=== PATIENT | female | born 1985 | race Caucasian/White ===

== ENCOUNTER 2017-04-28 16:49 | Emergency (ER) | payer MEDICAID ==
[~2017-04-28] VITALS: Ht 170.2 cm; Wt 63.5 kg
--- NOTE | 2017-04-28 17:20 | Emergency Room Report ---
History of Present Illness Time Seen by [id number] Presenting Problem in Triage Pt arrived:Walked Presenting Problem:PT BROUGHT IN BY PD FOR MEDICAL CLEARANCE. PT ADMITS SHE USED HEROIN APPROX 24 HRS AGO. 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 N Clinical Suspician of Infection? N Mental Status: 1 - Regular (Normal Baseline) Sepsis Risk:Low Sepsis Risk Have you (or family members/close friends) recently traveled outside the [place]? N If Yes, where/when: Have you had exposure to infectious disease within the past month? TB? Other? Specify: Comment The patient is brought in by police for medical clearance because she gives a history of having used heroin 24 hours ago. She says she also used methamphetamine this morning. She injects both of these. She denies any other recent drug use. No alcohol use today. She says that she feels at her usual baseline status. She has chronic problems with her gallbladder, diagnosed with gallstones a couple of years ago but never followed up to have surgery. She has hepatitis. Her liver chronically feels swollen. She has chronic problems with kidney stones. However, she is having no acute problems with any of these. She says she just got out of longterm a couple of weeks ago. ALLERGIES Coded Allergies: acetaminophen (From TYLENOL) (Mild, 04/28/17) Home Medications Reported Medications Multivit-Min W/Fe-Fa ( 1 Plus Iron) 1 TAB PO DAILY No Home Medications (NO HOME MEDICATIONS) 1 EACH XX ONCE History Medical History General Angina: No CT: No Hypertension? Yes Hyperlipidemia? No CHF? No COPD? No Asthma? No CVA? No Seizures? No Diabetes? No GB Disease: Yes MRSA? No TB? No Cancer? 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 N/A Social History Smoking Hx Smoker: Current Every Day Smoker Tobacco: Yes Type Cigarettes Packs/day < 1 Pack Alcohol Alcohol: No Review of Systems All Other Systems Reviewed and Negative Constitutional denies fever Respiratory denies cough, denies shortness of breath Cardiovascular denies chest pain Gastrointestinal abdominal pain (chronic) Physical Exam Vital Signs Vital Signs Date Time Temp Pulse Resp B/P Pulse O2 O2 Flow FiO2 Ox Delivery Rate 04/28 1742 98.6 110 18 151/76 98 04/28 1655 98.6 110 18 151/76 98 General Appearance no apparent distress, handcuffed Eye Exam - bilateral eye normal exam, bilateral eye PERRL, bilateral eye EOMI Ear, Nose, Throat hearing grossly normal, normal ENT inspection Neck normal inspection, non-tender, supple, full range of motion Respiratory Status Yes: trachea midline, chest symmetrical, non tender chest. No: respiratory distress. Lung Sounds bilateral: normal breath sounds, lungs clear. Cardiovascular normal exam, regular rate/rhythm, no peripheral edema, no gallop, no JVD, no murmur, no rub, normal peripheral pulses Peripheral Pulses Pulses normal Yes Gastrointestinal normal bowel sounds, soft, no organomegaly, mild generalized Extremities non-tender, normal range of motion, normal inspection Neurologic alert, normal exam, oriented x 3 Mental status normal mood/affect Skin intact, normal color, warm/dry Medical Decision Making LABS/Meds/Orders Pt receiving controlled substance in ED? No Progress - The patient has been medically evaluated and I find no significant medical condition to prevent disposition to longterm. The patient is medically cleared. Departure Departure Disposition DC Home or Self Care(routine) Clinical Impression Primary Impression: Substance abuse Condition STABLE Referrals [facility] Patient Instructions DI for Drug Abuse and Drug Addiction ED Critical Care Critical Care No at 1917
--- NOTE | 2017-04-28 17:20 | Emergency Room Report ---
History of Present Illness Time Seen by [id number] Presenting Problem in Triage Pt arrived:Walked Presenting Problem:PT BROUGHT IN BY PD FOR MEDICAL CLEARANCE. PT ADMITS SHE USED HEROIN APPROX 24 HRS AGO. 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 N Clinical Suspician of Infection? N Mental Status: 1 - Regular (Normal Baseline) Sepsis Risk:Low Sepsis Risk Have you (or family members/close friends) recently traveled outside the [place]? N If Yes, where/when: Have you had exposure to infectious disease within the past month? TB? Other? Specify: Comment The patient is brought in by police for medical clearance because she gives a history of having used heroin 24 hours ago. She says she also used methamphetamine this morning. She injects both of these. She denies any other recent drug use. No alcohol use today. She says that she feels at her usual baseline status. She has chronic problems with her gallbladder, diagnosed with gallstones a couple of years ago but never followed up to have surgery. She has hepatitis. Her liver chronically feels swollen. She has chronic problems with kidney stones. However, she is having no acute problems with any of these. She says she just got out of assisted a couple of weeks ago. ALLERGIES Coded Allergies: acetaminophen (From TYLENOL) (Mild, 04/28/17) Home Medications Reported Medications Multivit-Min W/Fe-Fa ( 1 Plus Iron) 1 TAB PO DAILY No Home Medications (NO HOME MEDICATIONS) 1 EACH XX ONCE History Medical History General Angina: No GA: No Hypertension? Yes Hyperlipidemia? No CHF? No COPD? No Asthma? No CVA? No Seizures? No Diabetes? No GB Disease: Yes MRSA? No TB? No Cancer? 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 Social History Smoking Hx Smoker: Current Every Day Smoker Tobacco: Yes Type Cigarettes Packs/day < 1 Pack Alcohol Alcohol: No Review of Systems All Other Systems Reviewed and Negative Constitutional denies fever Respiratory denies cough, denies shortness of breath Cardiovascular denies chest pain Gastrointestinal abdominal pain (chronic) Physical Exam Vital Signs Vital Signs Date Time Temp Pulse Resp B/P Pulse O2 O2 Flow FiO2 Ox Delivery Rate 04/28 1742 98.6 110 18 151/76 98 04/28 1655 98.6 110 18 151/76 98 General Appearance no apparent distress, handcuffed Eye Exam - bilateral eye normal exam, bilateral eye PERRL, bilateral eye EOMI Ear, Nose, Throat hearing grossly normal, normal ENT inspection Neck normal inspection, non-tender, supple, full range of motion Respiratory Status Yes: trachea midline, chest symmetrical, non tender chest. No: respiratory distress. Lung Sounds bilateral: normal breath sounds, lungs clear. Cardiovascular normal exam, regular rate/rhythm, no peripheral edema, no gallop, no JVD, no murmur, no rub, normal peripheral pulses Peripheral Pulses Pulses normal Yes Gastrointestinal normal bowel sounds, soft, no organomegaly, mild generalized Extremities non-tender, normal range of motion, normal inspection Neurologic alert, normal exam, oriented x 3 Mental status normal mood/affect Skin intact, normal color, warm/dry Medical Decision Making LABS/Meds/Orders Pt receiving controlled substance in ED? No Progress - The patient has been medically evaluated and I find no significant medical condition to prevent disposition to assisted. The patient is medically cleared. Departure Departure Disposition DC Home or Self Care(routine) Clinical Impression Primary Impression: Substance abuse Condition STABLE Referrals [facility] Patient Instructions DI for Drug Abuse and Drug Addiction ED Critical Care Critical Care No at 1917
[2017-04-28 17:42] VITALS: BP 151/76
--- OUTSIDE RECORDS SUMMARY | 2017-05-05 08:35 | External Medical Summary Rpt ---
Author Author [facility] Organization [facility] Address Unknown Phone Unavailable Care Team Providers Care Treating Engineer Name Role Phone Shagufta MICHAEL PCP [phone] Encounter [facility] SANG [id number] Date(s): 05/27/16 - 05/28/16 [place] [address] Discharge Diagnosis: Dental abscess Discharge Disposition: OP Self Care or Home Attending Physician: ROMINA SPRAGUE MD-EMR Admitting Physician: ROMINA SPRAGUE MD-EMR Referring Physician: RAKELY, SELF REFERRED Reason for Visit KIDNEY STONES Vital Signs Most recent 1 2 3 to oldest [Reference Range]: Temperature Oral (05/27/16 Oral Source 11:00 PM) (05/27/16 6:56 PM) Temperature Fahrenheit Fahrenheit Mode (05/27/16 11:00 (05/27/16 6:56 PM) PM) Temperature, 98.1 Deg F 99.0 Deg F Fahrenheit (05/27/16 11:00 (05/27/16 6:56 PM) [96.8-99.7 PM) Deg F] Clinical 37.2 Deg C Temperature, (05/27/16 6:56 PM) C Peripheral 73 bpm 76 bpm (05/27/16 94 bpm Pulse Rate (05/28/16 1:14 AM) 11:00 PM) (05/27/16 9:00 PM) [60-100 bpm] Respiratory 16 Breaths/Min Rate [14-20 (05/27/16 6:56 PM) Breaths/Min] Blood 116/78 mmHg 115/76 mmHg 103/91 mmHg Pressure (05/28/16 1:14 AM) (05/27/16 11:00 (05/27/16 9:00 PM) [90-140/60-9 PM) 0 mmHg] Mean 85 94 Arterial (05/28/16 1:14 AM) (05/27/16 9:00 PM) Pressure (MAP)-BMDI Oxygen 99 % 96 % (05/27/16 98 % Saturation (05/28/16 1:14 AM) 11:00 PM) (05/27/16 9:00 PM) [94-100 %] Oxygen Room air Room air (05/27/16 Room air Therapy Mode (05/28/16 1:14 AM) 11:00 PM) (05/27/16 9:00 PM) Problem List Condition Effective Status Health Informant Dates Status Hepatitis Active C(Confirmed) Allergies, Adverse Reactions, Alerts Substance Reaction Severity Status acetaminophen Liver damage Active Liver damage codeine facial swelling Active facial swelling Medications amoxicillin (amoxicillin 875 mg oral tablet)1 Tab, Oral, Two Times A Day, 7 Day(s), Refills: 0Ordering provider: SHINE MCCAIN MD, RESIDENT nitrofurantoin (Macrobid 100 mg oral capsule)1 Cap, Oral, Two Times A Day, 7 Day(s), Refills: 0Ordering provider: SHINE MCCAIN MD, RESIDENT phenazopyridine (Pyridium 200 mg oral tablet)1 Tab, Oral, Two Times A Day, 2 Day(s), Refills: 0Ordering provider: SHINE MCCAIN MD, RESIDENT Results GENERAL CHEMISTRY Most recent 1 to oldest [Reference Range]: Sodium Level 135 mmol/L [135-143 (05/27/16 7:46 PM) mmol/L] Potassium 3.2 mmol/L Level *LOW* [3.5-4.8 (05/27/16 7:46 PM) mmol/L] Chloride 99 mmol/L Level *LOW* [100-110 (05/27/16 7:46 PM) mmol/L] Carbon 27.0 mmol/L Dioxide (05/27/16 7:46 PM) Level [22.0-30.0 mmol/L] Anion Gap 9.0 [2.0-11.0] (05/27/16 7:46 PM) Glucose 84 mg/dL Level (05/27/16 7:46 PM) [70-110 mg/dL] Blood Urea 6 mg/dL Nitrogen (05/27/16 7:46 PM) [6-20 mg/dL] Creatinine 0.81 mg/dL Level (05/27/16 7:46 PM) [0.44-1.03 mg/dL] eGFR 100 mL/min/1.73m2 [>=60 (05/27/16 7:46 PM) mL/min/1.73m 2] eGFR 82 mL/min/1.73m2 NonAfrican (05/27/16 7:46 PM) [>=60 mL/min/1.73m 2] Bun/Creatini 7.4 ne (05/27/16 7:46 PM) [6.0-22.0] Calcium 9.4 mg/dL Level (05/27/16 7:46 PM) [8.9-10.2 mg/dL] Protein 7.3 Gram/dL Total (05/27/16 7:46 PM) [6.3-8.2 Gram/dL] Albumin 3.9 Gram/dL Level (05/27/16 7:46 PM) [3.3-4.5 Gram/dL] Globulin 3 *NA* (05/27/16 7:46 PM) A/G Ratio 1.3 [1.0-1.7] (05/27/16 7:46 PM) Bilirubin 1.3 mg/dL Total *HI* [0.2-1.0 (05/27/16 7:46 PM) mg/dL] Alk Phos 33 Units/Liter [25-105 (05/27/16 7:46 PM) Units/Liter] AST [8-34 97 Units/Liter Units/Liter] *HI* (05/27/16 7:46 PM) ALT [10-50 105 Units/Liter Units/Liter] *HI* (05/27/16 7:46 PM) HEMATOLOGY Most recent 1 to oldest [Reference Range]: WBC 6.5 10x3/mm3 [4.1-10.8 (05/27/16 7:46 PM) 10x3/mm3] RBC 4.79 Million/mm3 [3.77-5.16 (05/27/16 7:46 PM) Million/mm3] Hgb 14.7 Gram/dL [11.2-15.7 (05/27/16 7:46 PM) Gram/dL] Hct 43.1 % [34.1-44.9 (05/27/16 7:46 PM) %] MCV 89.9 fL [79.4-94.8 (05/27/16 7:46 PM) fL] MCH 30.7 pg [25.6-32.2 (05/27/16 7:46 PM) pg] MCHC 34.2 Gram/dL [32.2-35.5 (05/27/16 7:46 PM) Gram/dL] Platelet 165 10x3/mm3 Count (05/27/16 7:46 PM) [140-370 10x3/mm3] MPV 11.0 fL [8.7-12.0 (05/27/16 7:46 PM) fL] RDW 11.9 % [11.7-15.2 (05/27/16 7:46 PM) %] Neut % 75.9 % [34.0-69.5 *HI* %] (05/27/16 7:46 PM) Neut # 4.90 x10(3)/uL [1.70-6.00 (05/27/16 7:46 PM) x10(3)/uL] Lymph % 14.8 % [20.0-53.0 *LOW* %] (05/27/16 7:46 PM) Lymph # 1.0 x10(3)/uL [0.8-3.2 (05/27/16 7:46 PM) x10(3)/uL] [place] % 7.7 % [5.0-12.5 %] (05/27/16 7:46 PM) [place] # 0.5 x10(3)/uL [0.2-1.4 (05/27/16 7:46 PM) x10(3)/uL] Eos % 1.1 % [0.7-6.0 %] (05/27/16 7:46 PM) Eos # 0.1 x10(3)/uL [0.0-0.6 (05/27/16 7:46 PM) x10(3)/uL] Baso % 0.5 % [0.0-3.0 %] (05/27/16 7:46 PM) Baso # 0.0 x10(3)/uL [0.0-0.3 (05/27/16 7:46 PM) x10(3)/uL] Slide Review None *NA* (05/27/16 7:46 PM) URINALYSIS Most recent 1 to oldest [Reference Range]: Ur RBC [None 0-4 /HPF /HPF] (05/27/16 6:57 PM) Ur WBC [None 0-4 /HPF /HPF] (05/27/16 6:57 PM) Ur Mucous Present *NA* (05/27/16 6:57 PM) Ur Amorph Present /HPF *NA* (05/27/16 6:57 PM) Ur Squamous 0-4 /HPF Epithelial (05/27/16 6:57 PM) Cells [None /HPF] Urine Small Bilirubin *ABN* POC (05/27/16 7:04 PM) [Negative] Urine Blood Trace-Intact POC *NA* (05/27/16 7:04 PM) Urine Negative mg/dL Glucose POC (05/27/16 7:04 PM) [Negative mg/dL] Urine Trace mg/dL Ketones POC *ABN* [Negative (05/27/16 7:04 PM) mg/dL] Urine Trace Leukocyte *ABN* Esterase POC (05/27/16 7:04 PM) [Negative] Urine Positive Nitrite POC *ABN* [Negative] (05/27/16 7:04 PM) Urine pH POC 7.5 *NA* (05/27/16 7:04 PM) Urine Negative mg/dL Protein POC (05/27/16 7:04 PM) [Negative mg/dL] Urine 1.015 Specific *NA* [place] POC (05/27/16 7:04 PM) Urine 2.0 EU/dL Urobilinogen *NA* POC (05/27/16 7:04 PM) Immunizations No data available for this section Procedures No data available for this section Social History Social History Response Type Smoking Status Current every day smoker Assessment and Plan No data available for this section Hospital Discharge Instructions Patient EducationDental Abscess Urinary Tract Infection
--- OUTSIDE RECORDS SUMMARY | 2017-05-05 08:35 | External Medical Summary Rpt ---
Author Author [facility] Organization [facility] Address Unknown Phone Unavailable Care Team Providers Care Supervisor Steno Pool Name Role Phone Shagufta MICHAEL PCP [phone] Encounter [facility] SANG [id number] Date(s): 05/27/16 - 05/28/16 [place] [address] Discharge Diagnosis: Dental abscess Discharge Disposition: [...] 1.0 x10(3)/uL [0.8-3.2 (05/27/16 7:46 PM) x10(3)/uL] [place] % 7.7 % [5.0-12.5 %] (05/27/16 7:46 PM) [place] # 0.5 x10(3)/uL [0.2-1.4 (05/27/16 7:46 PM) [...] PM) [Negative mg/dL] Urine 1.015 Specific *NA* [place] POC (05/27/16 7:04 PM) Urine 2.0 EU/dL [...]
--- OUTSIDE RECORDS SUMMARY | 2017-05-05 08:38 | External Medical Summary Rpt | CCD ---
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 QUANTTATI VE COLONY COUNT URINE HOSPITAL 09194 [facility] HODDY, DISCHARGE 8 N JOSE ALFREDO Perea DAY PEDIATRIC MANAGEMEN S PSC T 30 MIN/< HX&XM NML 82176 [facility] ORACIO, NB INFT 8 N JOSE ALFREDO Perea INITIATIO PEDIATRIC N DX&TX S PSC OTHER 7359 [facility] MANUALLY 8 N N ASSISTED [facility] DELIVERY [facility] VAGINAL 09286 [facility] DELIVERY 8 N JR, ONLY OBSTETRIC GIA W/POSTPAR S AND FOSTER CARE GYNECOLOG Y NEURAXIAL 69702 [place], LABOR 8 ANESTHESI JUVENTINO S ANALG/ANE A GROUP S PLND PSC VAGINAL DELIVERY CUL 72638 [facility] PRSMPTV 8 [facility] INC PTHGNC ORGANISM SCRN W/COLONY ESTIMJ IADNA 26943 [facility] CHLAMYDIA 8 [facility] INC TRACHOMAT IS AMPLIFIED PROBE TQ IADNA 29903 [facility] NEISSERIA 8 [facility] GONORRHOE [place] [address]803 GEOVANY RAO UTERUS 8 N JR, REAL TIME OBSTETRIC GIA F/U S [place] [address] GEOVANY RAO 8 N JR, UTERUS OBSTETRIC GIA LIMITED S AND 1/> GYNECOLOG FETUSES Y CULTURE 26797 [facility] BACTERIAL 8 [place] [facility] [place] [address] CIRILO ACOSTA, 8 MEDICAL JENARO UTERUS IMAGING LIMITED ASSOCIATE 1/> [place]USES [place] PREG 91726 GEOVANY RAO UTERUS 8 N JR, AFTER 1ST OBSTETRIC GIA TRIMEST S AND GYNECOLOG GESTATION Y Encounters Encounter Start End Date Code Location Performer Type Date OFFICE 73058 [facility] 7 7 URGENT T NEW 30 CARE MINUTES EMERGENCY 58296 ANDRE ARGUETA DEPT 6 6 [facility] VISIT HIGH EMERGENCY SEVERITY& THREAT FUNCJ EMERGENCY 76450 UNIVERSIT 6 6 Y OF DEPARTMEN [place] [facility] VISIT E HOS HIGH/URGE NT SEVERITY HOSPITAL UNIVERSIT - 6 6 [facility]PATIEN [place] [facility] OFFICE 57833 [facility] T VIS[facility] MEDICAL 25 GROUP MINUTES EMERGENCY 11595 JACQUE SPRAGUE DEPT 6 6 EMERGENCY VISIT MEDICINE HIGH SEVERITY& THREAT FUNCJ OFFICE 89153 [facility] OUTPATIEN 5 5 DUVALLE T NEW 30 COMMUNITY MINUTES HEALT EMERGENCY 45780 TAYLOR VAZQUEZ 3 3 BARNEY BARNEY DEPARTMEN T VISIT HIGH/URGE NT SEVERITY [facility] ST - 2 2 [facility] T OFFICE [address]014 ST OUTPATIEN 2 2 DINORAH T NEW 20 MED CTR MINUTES EMERGENCY 33796 ROBERTO TODD 2 2 MEDICAL SET DEPARTMEN SERV T VISIT FOUNDATIO HIGH/URGE NT SEVERITY OFFICE 37342 [facility] 2 2 HEALTH JEFF T VISIT CLINIC OF 15 MARITZA MINUTES EMERGENCY 03366 DALI LEBLANC DEPT 2 2 EMERGENCY VISIT SERVICES HIGH SEVERITY& THREAT FUN HOSPITAL JAY - 2 2 [facility] OUTPATIEN INC T OFFICE 09235 [facility] OUTPAT[facility] 2 2 HEALTH JEFF T VISIT CLINIC OF 15 MARITZA MINUTES HOSPITAL JAY - 2 2 [facility] OUTPATIEN INC T EMERGENCY 75612 DALI BATISTA DEPT 2 2 EMERGENCY SAVANNAH VISIT SERVICES HIGH SEVERITY& THREAT FUNCJ EMERGENCY 63062 JAY 2 2 [facility] DEPARTMEN INC T VISIT MODERATE SEVERITY OFFICE 34435 JAY THOMPSON OUTPATIEN 2 2 [facility] [address] 1 1 ADELITA DEPARTMEN T VISIT MEDICALCE MODERATE NTER SEVERITY EMERGENCY 47975 EMERGENCY CAMP JAM 1 1 CARE DEPARTMEN PHYS T VISIT [facility] - 1 1 ADELITA OUTPATIEN T MEDICALCE NTER OFFICE 25650 DAISY ALMANZAR OUTPATIEN 1 1 [facility] GENA T VISIT UROLOGY 25 PSC MINUTES EMERGENCY 18568 JAY 1 1 [facility] DEPARTMEN INC T VISIT LIMITED/M INOR PROB EMERGENCY 05996 DALI BATISTA 1 1 EMERGENCY SAVANNAH DEPARTMEN SERVICES T VISIT HIGH/URGE NT SEVERITY HOSPITAL JAY - 1 1 [facility] OUTPATIEN INC T OFFICE 15253 JAY HOLGUINEN 1 1 [facility] 25 MINUTES OFFICE 78993 ERENA & DIONNA, OUTPATIEN 1 1 VILLAREAL, III LISSETTE T NEW 10 PLLC MINUTES OFFICE 80082 DAISY ALMANZAR OUTPATIEN 1 1 [facility] GENA T VISIT UROLOGY 25 PSC MINUTES OFFICE 19219 DAISY ALMANZAR CONSULTAT 0 0 LT GENA ION UROLOGY NEW/ESTAB PSC PATIENT 40 MIN OFFICE 73939 [place] FERNANDA OUTPATIEN 0 0 [facility] JR BASSAM T VISIT INTERNAL 15 MED MINUTES EMERGENCY 09160 DALI BACA DEPT 0 0 EMERGENCY VISIT SERVICES HIGH SEVERITY& THREAT FUNCJ EMERGENCY 62931 JAY 0 0 [facility] DEPARTMEN INC T VISIT MODERATE SEVERITY HOSPITAL JAY - 0 0 [facility] OUTPATIEN [facility] H[facility]PITAL JAY - 0 0 [facility] OUTPATIEN INC T EMERGENCY 70297 DALI GORDON DEPT 0 0 EMERGENCY III BASSAM VISIT SERVICES HIGH SEVERITY& THREAT FUNCJ EMERGENCY 75485 JAY 0 0 [facility] DEPARTMEN INC T VISIT MODERATE SEVERITY EMERGENCY 13953 DALI BATISTA, 0 0 EMERGENCY [facility] SERVICES T VISIT HIGH/URGE ASSOCIATE NT S SEVERITY HOSPITAL JAY - 0 0 [facility] OUTPATIEN INC T HOSPITAL JAY - 0 0 [facility] OUTPATIEN INC T EMERGENCY 99018 DALI CELLAROSI DEPT 9 9 EMERGENCY - YORBA, VISIT SERVICES DARRELL HIGH M SEVERITY& ASSOCIATE THREAT S FUNCJ OFFICE 55615 GEOVANY RAO OUTPATIEN 9 9 N JR, T VISIT OBSTETRIC GIA 40 S AND MINUTES GYNECOLOG Y EMERGENCY 53589 JAY AKINS, 8 8 [facility] T VISIT PROF SERV MODERATE SEVERITY HOSPITAL JAY - 8 8 [facility] OUTPATIEN INC T OFFICE 65878 [facility] JAY OUTPATIEN 8 8 [facility]ALTH [facility] T VISIT [facility] [place] 10 BANK ACCT [facility] - 8 8 N OUTPATIEN [facility] HOSPITAL OFFICE 09782 [place] SHANTELL OUTJB 8 8 [facility] T NEW 30 INTERNAL MINUTES [facility] JAY - 8 8 [facility] OUTPATIEN INC T OFFICE 46105 [facility]/CO JAY OUTPATIEN [address] [facility] T VISIT [facility] [place] 15 [facility] ACCT [facility] - 8 8 N INPATIENT [facility] HOSPITAL OFFICE 83850 GEOVANY MCMULLENN OUTPATIEN 8 8 N JR, T VISIT OBSTETRIC GIA 15 S AND MINUTES GYNECOLOG Y OFFICE 06604 GEOVANY MCMULLENN OUTPATIEN 8 8 N JR, T VISIT OBSTETRIC GIA 15 S AND MINUTES GYNECOLOG Y OFFICE 84994 [place] JALEN OUTPATIEN 8 8 N JR, T VISIT OBSTETRIC GIA 15 S AND MINUTES GYNECOLOG Y OFFICE 56321 GEOVANY MCMULLENN OUTPATIEN 8 8 N JR, T VISIT OBSTETRIC GIA 15 S AND MINUTES GYNECOLOG Y OFFICE 55611 [place] JALEN OUTPATIEN 8 8 N JR, T VISIT OBSTETRIC GIA 15 S AND MINUTES GYNECOLOG Y OFFICE 49859 [place] JALEN OUTPATIEN 8 8 N JR, T VISIT OBSTETRIC GIA 15 S AND MINUTES GYNECOLOG Y OFFICE 17899 [place] JALEN OUTPATIEN 8 8 N JR, T VISIT OBSTETRIC GIA 15 S AND MINUTES GYNECOLOG Y OFFICE 48016 [place] JALEN OUTPATIEN 8 8 N JR, T VISIT OBSTETRIC GIA 15 S AND MINUTES GYNECOLOG Y OFFICE 09723 GEOVANY RAO OUTPATIEN 8 8 N , T VISIT OBSTETRIC GIA 15 S AND MINUTES GYNECOLOG Y OFFICE 95903 GEOVANY RAO OUTPATIEN 8 8 N , T VISIT OBSTETRIC GIA 15 S AND MINUTES GYNECOLOG Y OFFICE 43919 GEOVANY RAO OUTPATIEN 8 8 N JR, T VISIT OBSTETRIC GIA 15 S AND MINUTES GYNECOLOG Y
--- OUTSIDE RECORDS SUMMARY | 2017-05-05 08:38 | External Medical Summary Rpt | CCD ---
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 [facility] - 8 8 N OUTPATIEN [facility] OFFICE 33228 [facility] SHANTELL OUTJB 8 8 [facility] T NEW 30 INTERNAL MINUT[facility] JAY - 8 8 [facility] OUTPATIEN INC T OFFICE 42626 [facility] OUTPAT[facility]EN 8 8 [facility] T VISIT [facility] 15 [facility] ACCT [facility] - 8 8 N INPATIENT [facility] OFFICE 02500 GEOVANY MCMULLENN OUTPATIEN 8 8 N JR, T VISIT OBSTETRIC GIA 15 S AND MINUTES GYNECOLOG Y OFFICE 01926 GEOVANY MCMULLENN OUTPATIEN 8 8 N JR, T VISIT OBSTETRIC GIA 15 S AND MINUTES GYNECOLOG Y OFFICE 85158 [place] JALEN OUTPATIEN 8 8 N JR, T VISIT OBSTETRIC GIA 15 S AND MINUTES GYNECOLOG Y OFFICE 16966 GEOVANY MCMULLENN OUTPATIEN 8 8 N JR, T VISIT OBSTETRIC GIA 15 S AND MINUTES GYNECOLOG Y OFFICE 21874 [place] JALEN OUTPATIEN 8 8 N JR, T VISIT OBSTETRIC GIA 15 S AND MINUTES GYNECOLOG Y OFFICE 39500 [place] JAL[place] OUTPATIEN 8 8 N JR, T VISIT OBSTETRIC GIA 15 S AND MINUTES GYNECOLOG Y OFFICE 26909 [place] JALEN OUTPATIEN 8 8 N JR, T VISIT OBSTETRIC GIA 15 S AND MINUTES GYNECOLOG Y OFFICE 38456 [place] JALEN OUTPATIEN 8 8 N JR, T VISIT OBSTETRIC GIA 15 S AND MINUTES GYNECOLOG Y OFFICE 69351 GEOVANY RAO OUTPATIEN 8 8 N , T VISIT OBSTETRIC GIA 15 S AND MINUTES GYNECOLOG Y OFFICE 80528 GEOVANY RAO OUTPATIEN 8 8 N , T VISIT OBSTETRIC GIA 15 S AND MINUTES GYNECOLOG Y OFFICE 32363 GEOVANY RAO OUTPATIEN 8 8 N JR, T VISIT OBSTETRIC GIA 15 S AND MINUTES GYNECOLOG Y
--- OUTSIDE RECORDS SUMMARY | 2017-05-05 08:42 | External Medical Summary Rpt | CCD ---
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 HIGH SEVERITY& THREAT FUNCJ EMERGENCY 26910 JAY 0 0 [facility] DEPARTMEN INC T VISIT MODERATE SEVERITY HOSPITAL JAY - 0 0 [facility] OUTPATIEN INC T EMERGENCY 17489 JAY 0 0 [facility] DEPARTMEN INC T VISIT MODERATE SEVERITY HOSPITAL JAY - 0 0 [facility] OUTPATIEN INC T EMERGENCY 38037 DALI GORDON DEPT 0 0 EMERGENCY III BASSAM VISIT SERVICES HIGH SEVERITY& THREAT FUNJ EMERGENCY 76155 DALI BATISTA, 0 0 EMERGENCY AMANDA S DEPARTMEN SERVICES T VISIT HIGH/URGE ASSOCIATE NT S SEVERITY HOSPITAL AJY - 0 0 [facility] OUTPATIEN INC T HOSPITAL JAY - 0 0 [facility] OUTPATIEN INC T EMERGENCY 32590 DALI CELLAROSI DEPT 9 9 EMERGENCY - YORBA, VISIT SERVICES DARRELL HIGH M SEVERITY& ASSOCIATE THREAT S FUNCJ OFFICE 87623 GEOVANY RAO OUTPATIEN 9 9 N JR, T VISIT OBSTETRIC GIA 40 S AND MINUTES GYNECOLOG Y HOSPITAL JAY - 8 8 [facility] OUTPATIEN INC T EMERGENCY 48263 JAY 8 8 [facility] DEPARTMEN INC T VISIT MODERATE SEVERITY OFFICE 55061 [facility] OUTPATIEN 8 8 [facility] T VISIT [facility] 8 8 N OUTPATIEN [facility] OFFICE 32936 JAYNE SHANTELL OUTPATIEN 8 8 VALLEY AMALIA T NEW 30 INTERNAL MINUTES [facility] JAY - 8 8 [facility] OUTPATI[facility] INC T OFF[facility] 08896 [facility] JAY OUTPATIEN 8 8 [facility] T [facility]ISIT [facility] AKOSUAKaron - 8 8 N INPATIENT [facility] H[facility]PITAL OFFICE 14947 AKOSUAMARICHUY JALEN OUTPATIEN 8 8 N JR, T VISIT OBSTETRIC GIA 15 S AND MINUTES GYNECOLOG Y OFFICE 16348 GEORGEMARICHUY JALEN OUTPATIEN 8 8 N JR, T VISIT OBSTETRIC GIA 15 S AND MINUTES GYNECOLOG Y OFFICE 18663 [place] JALEN OUTPATIEN 8 8 N JR, T VISIT OBSTETRIC GIA 15 S AND MINUTES GYNECOLOG Y OFFICE 67846 GEORGETOKaron JALEN OUTPATIEN 8 8 N JR, T VISIT OBSTETRIC GIA 15 S AND MINUTES GYNECOLOG Y OFFICE 03813 [place] JALEN OUTPATIEN 8 8 N JR, T VISIT OBSTETRIC GIA 15 S AND MINUTES GYNECOLOG Y OFFICE 82461 [place] JALEN OUTPATIEN 8 8 N JR, T VISIT OBSTETRIC GIA 15 S AND MINUTES GYNECOLOG Y OFFICE 35618 GEORGETOKaron JALEN OUTPATIEN 8 8 N JR, T VISIT OBSTETRIC GIA 15 S AND MINUTES GYNECOLOG Y OFFICE 67997 [place] JALEN OUTPATIEN 8 8 N JR, T VISIT OBSTETRIC GIA 15 S AND MINUTES GYNECOLOG Y OFFICE 34890 GEOVANY RAO OUTPATIEN 8 8 N JR, T VISIT OBSTETRIC GIA 15 S AND MINUTES GYNECOLOG Y OFFICE 07659 GEOVANY RAO OUTPATIEN 8 8 N JR, T VISIT OBSTETRIC GIA 15 S AND MINUTES GYNECOLOG Y OFFICE 65354 GEOVANY RAO OUTPATIEN 8 8 N JR, T VISIT OBSTETRIC GIA 15 S AND MINUTES GYNECOLOG Y
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
--- OUTSIDE RECORDS SUMMARY | 2017-05-05 08:43 | External Medical Summary Rpt ---
Author Author [employer], [employer] Organization [employer] Address Unknown Phone Unavailable Results Vanco Tr Observa Value Referen Units Interpr Notes Date tion ce etation Range Vanco 5.1 10.0 - mcg/mL Low No Mar 16 Tr 20.0 informa 2012 tion in 5:21 AM source data BUN Observa Value Referen Units Interpr Notes Date tion ce etation Range Urea 10 7 - 25 mg/dL No No Mar 16 nitroge informa informa 2012 n tion in tion in 5:10 AM [Mass/v source source olume] data data in Serum or Plasma BUN Observa Value Referen Units Interpr Notes Date tion ce etation Range Urea 11 7 - 25 mg/dL No Mar 15 nitroge informa informa 2012 n tion in tion in 7:04 AM [Mass/v source source olume] data data in Serum or Plasma PLT Count Observa Value Referen Units Interpr Notes Date tion ce etation Range Platele 161 144 - x10(3)/ No No Mar 14 ts 423 mcL informa informa 2012 [#/volu tion in tion in 6:42 PM me] in source source Blood data data by Automat ed count MPV 9.9 6.8 - fL No No Mar 14 10.8 informa informa 2012 tion in tion in 6:42 PM source source data data Hepatic Pa Observa Value Referen Units Interpr Notes Date tion ce etation Range Protein 5.9 6.2 - gm/dL Low No Mar 14 8.3 informa 2012 [Mass/v tion in 6:00 PM olume] source in data Serum or Plasma Albumin 3.6 3.6 - gm/dL No No Mar 14 5.1 informa informa 2012 [Mass/v tion in tion in 6:00 PM olume] source source in data data Serum or Plasma Bilirub 0.1 0.0 - mg/dL No No Mar 14 in.dire 0.2 informa informa 2012 ct tion in tion in 6:00 PM [Mass/v source source olume] data data in Serum or Plasma Bilirub 0.4 0.2 - mg/dL No Mar 14 in.tota 1.2 informa informa 2012 l tion in tion in 6:00 PM [Mass/v source source olume] data data in Serum or Plasma ASPARTA 36 10 - 30 IU/L High No Mar 14 TE informa 2012 AMINOTR tion in 6:00 PM ANSFERA source SE data Alanine 32 6 - 40 IU/L No No Mar 14 informa informa 2012 aminotr tion in tion in 6:00 PM ansfera source source se data data [Enzyma tic activit y/volum e] in Serum or Plasma Alkalin 49 33 - IU/L No No Mar 14 e 115 informa informa 2012 phospha tion in tion in 6:00 PM tase source source [Enzyma data data tic activit y/volum e] in Serum or Plasma Hemogram Observa Value Referen Units Interpr Notes Date tion ce etation Range LEUKOCY 7.6 4.0 - x10(3)/ No Mar 14 JERILYN 11.0 mcL informa informa 2012 tion in tion in 7:56 AM source source data data Erythro 4.43 3.80 - x10(6)/ No Mar 14 cytes 5.10 mcL informa informa 2012 [#/volu tion in tion in 7:56 AM me] in source source Blood data data by Automat ed count Hemoglo 13.1 12.0 - gm/dL No Mar 14 bin 15.6 informa informa 2012 [Mass/v tion in tion in 7:56 AM olume] source source in data data Blood Hematoc 40.0 35.7 - % No Mar 14 rit 45.9 informa informa 2012 [Volume tion in tion in 7:56 AM source source Fractio data data n] of Blood by Automat ed count Erythro 90.4 82.5 - fL No Mar 14 cyte 99.8 informa informa 2012 mean tion in tion in 7:56 AM corpusc source source ular data data volume [Entiti c volume] by Automat ed count Erythro 29.6 27.0 - pg No Mar 14 cyte 34.3 informa informa 2012 mean tion in tion in 7:56 AM corpusc source source ular data data hemoglo bin [Entiti c mass] by Automat ed count Erythro 32.8 32.1 - gm/dL No Mar 14 cyte 35.3 informa informa 2012 mean tion in tion in 7:56 AM corpusc source source ular data data hemoglo bin concent ration [Mass/v olume] by Automat ed count Erythro 13.9 11.5 - % No Mar 14 cyte 15.0 informa informa 2012 distrib tion in tion in 7:56 AM ution source source width data data [Ratio] by Automat ed count Platele 104 144 - x10(3)/ Low No Mar 14 ts 423 mcL informa 2012 [#/volu tion in 7:56 AM me] in source Blood data by Automat ed count MPV 11.0 6.8 - fL High No Mar 14 10.8 informa 2012 tion in 7:56 AM source data BMP Observa Value Referen Units Interpr Notes Date tion ce etation Range Sodium 141 135 - mmol/L No Mar 13 [Moles/ 143 informa informa 2012 volume] tion in tion in 10:08 in source source PM Serum data data or Plasma Potassi 4.3 3.5 - mmol/L No Mar 13 um 5.0 informa informa 2012 [Moles/ tion in tion in 10:08 volume] source source PM in data data Serum or Plasma Chlorid 104 98 - mmol/L No Mar 13 e 108 informa informa 2012 [Moles/ tion in tion in 10:08 volume] source source PM in data data Serum or Plasma Carbon 24 22 - 31 mmol/L No Mar 13 dioxide informa informa 2012 , total tion in tion in 10:08 source source PM [Moles/ data data volume] in Serum or Plasma Anion 13 7 - 16 mmol/L No Mar 13 Gap informa informa 2012 tion in tion in 10:08 source source PM data data CALCIUM 9.1 8.6 - mg/dL No Mar 13 .TOTAL 10.3 informa informa 2012 tion in tion in 10:08 source source PM data data Glucose 83 70 - mg/dL No No Mar 13 100 informa informa 2012 [Mass/v tion in tion in 10:08 olume] source source PM in data data Serum or Plasma Urea 11 7 - 19 mg/dL No No Mar 13 nitroge informa informa 2013 n tion in tion in 10:08 [Mass/v source source PM olume] data data in Serum or Plasma Creatin 1.0 0.6 - mg/dL No No Mar 13 ine 1.0 informa informa 2012 [Mass/v tion in tion in 10:08 olume] source source PM in data data Serum or Plasma GFR Afr N/A No No No GFR is Mar 13 Am informa informa informa estimat 2012 tion in tion in tion in ed 10:08 source source source using PM data data data creatin ine, age, gender, and race. GFR\.br \has been validat ed for patient s between 18 and 70 years of age.\.b r\GFR has not been validat ed for pregnan t women, patient s with\.b r\tesfaye us comorbi d conditi ons, or persons with extreme s of body\.b r\size, muscle mass, or nutriti onal status. For additio nal\.br \inform ation: [email or web address] .\.br\\ .br\Chr onic kidney disease stage GFR (ml/min /1.73 square meters) \.br\-- ------- ------- ------- ------- ----- ------- ------- ------- ------- ------- ------\ .br\ Stage 3 30 - 59\.br\ Stage 4 15 - 29\.br\ Stage 5 14 or less\.b r\\.br\ GFR Non N/A No No No No Mar 13 Afr Am informa informa informa informa 2012 tion in tion in tion in tion in 10:08 source source source source PM data data data data Hemogram Observa Value Referen Units Interpr Notes Date tion ce etation Range LEUKOCY 9.5 4.0 - x10(3)/ No Mar 13 JERILYN 11.0 mcL informa informa 2013 tion in tion in 8:08 PM source source data data Erythro 4.76 3.80 - x10(6)/ No No Mar 13 cytes 5.10 mcL informa informa 2013 [#/volu tion in tion in 8:08 PM me] in source source Blood data data by Automat ed count Hemoglo 13.9 12.0 - gm/dL No Mar 13 bin 15.6 informa informa 2013 [Mass/v tion in tion in 8:08 PM olume] source source in data data Blood Hematoc 42.2 35.7 - % No Mar 13 rit 45.9 informa informa 2013 [Volume tion in tion in 8:08 PM source source Fractio data data n] of Blood by Automat ed count Erythro 88.7 82.5 - fL No Mar 13 cyte 99.8 informa informa 2013 mean tion in tion in 8:08 PM corpusc source source ular data data volume [Entiti c volume] by Automat ed count Erythro 29.2 27.0 - pg No Mar 13 cyte 34.3 informa informa 2013 mean tion in tion in 8:08 PM corpusc source source ular data data hemoglo bin [Entiti c mass] by Automat ed count Erythro 32.9 32.1 - gm/dL No Mar 13 cyte 35.3 informa informa 2013 mean tion in tion in 8:08 PM corpusc source source ular data data hemoglo bin concent ration [Mass/v olume] by Automat ed count Erythro 13.9 11.5 - % No Mar 13 cyte 15.0 informa informa 2013 distrib tion in tion in 8:08 PM ution source source width data data [Ratio] by Automat ed count Platele 212 144 - x10(3)/ No No Mar 13 ts 423 mcL informa informa 2013 [#/volu tion in tion in 8:08 PM me] in source source Blood data data by Automat ed count MPV 10.0 6.8 - fL No Mar 13 10.8 informa informa 2013 tion in tion in 8:08 PM source source data data CBC Observa Value Referen Units Interpr Notes Date tion ce etation Range LEUKOCY 5.7 3.8 - x10(3)/ No No Feb 02 JERILYN 10.8 mcL informa informa 2012 tion in tion in 2:33 AM source source data data Erythro 4.63 3.80 - x10(6)/ No No Feb 02 cytes 5.10 mcL informa informa 2012 [#/volu tion in tion in 2:33 AM me] in source source Blood data data by Automat ed count Hemoglo 13.8 11.7 - gm/dL No No Feb 02 bin 15.5 informa informa 2012 [Mass/v tion in tion in 2:33 AM olume] source source in data data Blood Hematoc 41.2 35.0 - % No No Feb 02 rit 45.0 informa informa 2012 [Volume tion in tion in 2:33 AM source source Fractio data data n] of Blood by Automat ed count Erythro 88.8 80.0 - fL No No Feb 02 cyte 100.0 informa informa 2012 mean tion in tion in 2:33 AM corpusc source source ular data data volume [Entiti c volume] by Automat ed count Erythro 29.8 27.0 - pg No No Feb 02 cyte 33.0 informa informa 2012 mean tion in tion in 2:33 AM corpusc source source ular data data hemoglo bin [Entiti c mass] by Automat ed count Erythro 33.5 32.0 - gm/dL No No Feb 02 cyte 36.0 informa informa 2012 mean tion in tion in 2:33 AM corpusc source source ular data data hemoglo bin concent ration [Mass/v olume] by Automat ed count Erythro 12.4 11.0 - % No No Feb 02 cyte 15.0 informa informa 2012 distrib tion in tion in 2:33 AM ution source source width data data [Ratio] by Automat ed count Platele 135 140 - x10(3)/ Low No Feb 02 ts 400 mcL informa 2012 [#/volu tion in 2:33 AM me] in source Blood data by Automat ed count MPV 9.9 7.5 - fL No No Feb 02 11.5 informa informa 2012 tion in tion in 2:33 AM source source data data Auto Diff Observa Value Referen Units Interpr Notes Date tion ce etation Range Neutrop 71.0 No % No No Feb 02 hils informa informa informa 2012 [#/volu tion in tion in tion in 2:33 AM me] in source source source Blood data data data by Automat ed count Lymphoc 19.7 No % No No Feb 02 ytes informa informa informa 2012 [#/volu tion in tion in tion in 2:33 AM me] in source source source Blood data data data by Automat ed count Monocyt 7.1 No % No No Feb 02 es informa informa informa 2012 [#/volu tion in tion in tion in 2:33 AM me] in source source source Blood data data data by Automat ed count Eos 1.5 No % No No Feb 02 Percent informa informa informa 2012 tion in tion in tion in 2:33 AM source source source data data data Baso 0.7 No % No No Feb 02 Percent informa informa informa 2012 tion in tion in tion in 2:33 AM source source source data data data Neut# 4.05 1.50 - x10(3)/ No No Feb 02 7.80 mcL informa informa 2012 tion in tion in 2:33 AM source source data data Lymph# 1.12 0.85 - x10(3)/ No No Feb 02 3.90 mcL informa informa 2012 tion in tion in 2:33 AM source source data data Sierra# 0.40 0.20 - x10(3)/ No No Jan 13 0.95 mcL informa informa 2013 tion in tion in 2:33 AM source source data data Eos# 0.09 0.01 - x10(3)/ No No Jan 13 0.50 mcL informa informa 2013 tion in tion in 2:33 AM source source data data Baso# 0.04 0.00 - x10(3)/ No No Jan 13 0.20 mcL informa informa 2013 tion in tion in 2:33 AM source source data data Lipase Observa Value Referen Units Interpr Notes Date tion ce etation Range Lipase 11 10 - 71 IU/L No No Feb 02 Lvl informa informa 2013 tion in tion in 2:07 AM source source data data Hepatic Pa Observa Value Referen Units Interpr Notes Date tion ce etation Range Protein 8.0 6.2 - gm/dL No No Feb 02 8.3 informa informa 2012 [Mass/v tion in tion in 2:07 AM olume] source source in data data Serum or Plasma Albumin 4.7 3.6 - gm/dL No No Feb 02 5.1 informa informa 2012 [Mass/v tion in tion in 2:07 AM olume] source source in data data Serum or Plasma Bilirub 0.1 0.0 - mg/dL No No Feb 02 in.dire 0.[address] tion in tion in 2:07 AM [Mass/v source source olume] data data in Serum or Plasma Bilirub 0.7 0.2 - mg/dL No No Feb 02 in.tota 1.2 informa informa 2012 l tion in tion in 2:07 AM [Mass/v source source olume] data data in Serum or Plasma ASPARTA 38 10 - 30 IU/L High No Feb 02 TE informa 2012 AMINOTR tion in 2:07 AM ANSFERA source SE data Alanine 22 6 - 40 IU/L No No Feb 02 informa informa 2012 aminotr tion in tion in 2:07 AM ansfera source source se data data [Enzyma tic activit y/volum e] in Serum or Plasma Alkalin 40 33 - IU/L No No Feb 02 e 115 informa informa 2012 phospha tion in tion in 2:07 AM tase source source [Enzyma data data tic activit y/volum e] in Serum or Plasma
--- OUTSIDE RECORDS SUMMARY | 2017-05-05 08:43 | External Medical Summary Rpt | CCD ---
Demographics Preferred Language Citizen Of [place] Marital Status Unknown Buddhist Affiliation Unknown Race Unknown Ethnic Group Unknown Author Author , [employer] [facility] Address Unknown Phone Immunization No patient found.
--- OUTSIDE RECORDS SUMMARY | 2017-05-05 08:43 | External Medical Summary Rpt ---
Author Author [employer], [employer] Address Unknown Phone Unavailable Results Vanco [...] in 2:33 AM source source data data [place]# 0.40 0.20 - x10(3)/ No No Jan [...]
--- OUTSIDE RECORDS SUMMARY | 2017-05-05 08:43 | External Medical Summary Rpt | CCD ---
Demographics Preferred Language Indian Marital Status Unknown Voodoo Affiliation Unknown Race Unknown Ethnic Group Unknown Author Author , [employer] C[facility] Address Unknown Phone Immunization No patient found.
== END 2017-04-28 17:49 | disposition home or self-care (01) ==
LOC: ER 16:49
DX: Z02.89 Encounter for other administrative examinations (principal); F11.20 Opioid dependence, uncomplicated; F15.20 Other stimulant dependence, uncomplicated; Z86.19 Personal history of other infectious and parasitic diseases; I10 Essential (primary) hypertension; Z87.442 Personal history of urinary calculi; F17.210 Nicotine dependence, cigarettes, uncomplicated